=== PATIENT | female | born 1965 | race Caucasian/White ===

== ENCOUNTER 2016-10-26 14:13 | Observation (INO) ==
[2016-10-26] MEDS ORDERED: Ipratropium/Albuterol Neb 3 ML IH ONE (14:14)
--- NOTE | 2016-10-26 14:17 | Emergency Department Note ---
Disposition Clinical Impression: Chest pain Qualifiers: Chest pain type: unspecified Qualified Code(s): R07.9 - Chest pain, unspecified Disposition: Admitted As Inpatient Condition: Good Referrals: NO,PCP [Non-Partnered Physician] - Forms: ED Satisfaction Letter Time of Disposition: 17:12 SOB HPI - General Chief Complaint: ED Shortness of Breath/Dyspnea Stated Complaint: STEFANIE Time Seen by Provider: 10/26/16 14:14 Source: patient, EMS Mode of arrival: EMS Limitations: no limitations Nursing Notes Reviewed: Yes Vital Signs Reviewed: Yes - History of Present Illness 51-year-old with history of asthma comes in with main complaint of shortness of breath and cough. Patient was seen at the urgent care there concern was she may be having cardiac origin chest pain. She does have pain but she states only with coughing. She also has been lightheaded and somewhat dizzy. She notes that she lost her here in the last couple weeks has been placed on lorazepam for the anxiety. Pt Subjective Complaint: shortness of breath, cough, chest pain (With cough) Onset (ago): day(s) Context: recent illness Severity: moderate Consistency/Duration: intermittent Improves with: nothing Worsens with: nothing Known history of: asthma Associated symptoms: Reports: chest pain (With cough), cough, wheezing Treatment prior to arrival: none Cough Description: Involuntary Cough Frequency: Intermittent - Related Data Home Medications Medication Instructions Recorded Confirmed Atorvastatin [Lipitor] 10 mg PO HS 11/20/14 06/09/16 Butalb/Acetaminophen/Caffeine 1 each PO DAILY PRN 11/20/14 06/09/16 [Fioricet 50-300-40 mg Capsule] Lisinopril/Hydrochlorothiazide each PO DAILY 11/20/14 05/12/16 [Zestoretic 20-25 mg Tablet] Montelukast Sodium [Singulair] 10 mg PO HS 11/20/14 07/09/16 SUMAtriptan Succinate [Imitrex] 100 mg PO DAILY PRN 11/20/14 07/09/16 Cetirizine HCl [Zyrtec] 10 mg PO DAILY PRN 05/10/15 06/09/16 Cholecalciferol (Vitamin D3) 1,000 unit PO DAILY 05/10/15 06/09/16 [Vitamin D] Oxybutynin Chloride [Ditropan Xl] 15 mg PO DAILY 05/10/15 07/09/16 Lysine [l-Lysine] 500 mg PO DAILY PRN 08/03/15 07/09/16 Methocarbamol [Robaxin-750] 750 mg PO BID PRN 08/03/15 07/09/16 Sertraline [Zoloft] 100 mg PO DAILY 08/03/15 07/09/16 traZODone [TraZODone] 50 mg PO HS PRN 08/03/15 07/09/16 Esomeprazole Magnesium [Nexium] 40 mg PO 06/09/16 Lisinopril-HCTZ 20-12.5 [Prinzide 1 each PO 06/09/16 20-12.5] Previous Rx's Medication Instructions Recorded HYDROcodone/Acet 5/325 mg [[place] 1 tab PO Q6H PRN #8 tab 06/09/16 5-325 mg] Gabapentin [Neurontin] 300 mg PO TID #30 capsule 07/09/16 HYDROcodone/Acet 5/325 mg [[place] 1 tab PO Q6H PRN #14 tab 07/09/16 5-325 mg] Allergies Allergy/AdvReac Type Severity Reaction Status Date / Time aspirin [ASA] AdvReac Vomiting Verified 10/26/16 14:16 azithromycin AdvReac Gastrointestinal Verified 10/26/16 14:16 Upset butorphanol [From Stadol] AdvReac Itching Verified 10/26/16 14:16 codeine AdvReac Rash Verified 10/26/16 14:16 Erythromycin Base AdvReac Vomiting Verified 10/26/16 14:16 ibuprofen AdvReac See Verified 10/26/16 14:16 Comments Past Medical History - Past Medical History Medical history: Reports: asthma, GERD, hyperlipidemia, hypertension, migraine Surgical history: Reports: , cholecystectomy, hysterectomy Psychiatric history: Reports: anxiety, depression NUTRITION THERAPIST history: Reports: no NUTRITION THERAPIST history - Social History Smoking Status: Never smoker Smokeless Tobacco Status: No Alcohol use: Reports: occasionally Drug use: Reports: none Physical Exam - General Limitations: no limitations General appearance: alert, in no apparent distress - Head Head exam: atraumatic, normocephalic, normal inspection - Eye Eye exam: Present: normal appearance, PERRL, EOMI - ENT ENT exam: normal exam, normal oropharynx, mucous membranes moist - Neck Neck exam: Present: normal inspection, full ROM, trachea midline - Chest Chest inspection: Present: normal inspection, symmetric chest wall rise - Respiratory Respiratory exam: Present: wheezes (Occasional) - Cardiovascular Cardiovascular exam: Present: regular rate, normal rhythm, normal heart sounds - Abdominal Exam Abdominal exam: Present: soft, Non-Tender. Absent: tenderness, distention, guarding, rebound, rigidity - Extremities Exam Extremities exam: Present: normal inspection, full ROM. Absent: tenderness, pedal edema - Expanded Lower Extremity Exam Neurovascular/Tendon exam: Absent: motor deficit, sensory deficit, tendon deficit - Back Exam Back exam: Present: normal inspection, full ROM. Absent: tenderness - Neurological Exam Neurological exam: Present: alert, oriented X3. Absent: motor sensory deficit - Psychiatric Psychiatric exam: Present: normal affect, normal mood Course - Reevaluation(s) Reevaluation #1: 51-year-old who comes in complaining of chest pain and some lightheadedness and dizziness. Multiple cardiac risk factors. No recent workup. Be admitted for evaluation of her chest pain. Time: 17:11 - Consultations Consultation #1: Discussed with Dr. Valiente, admit. Time: 17:11 Vital Signs Temperature 98.2 F 10/26/16 14:17 Pulse Rate 53 10/26/16 14:17 Respiratory Rate 18 10/26/16 14:17 Blood Pressure 131/76 10/26/16 14:17 O2 Sat by Pulse Oximetry 98 10/26/16 14:17 Temperature 98.2 F 10/26/16 14:17 Pulse Rate 53 10/26/16 14:17 Respiratory Rate 18 10/26/16 14:17 Blood Pressure 131/76 10/26/16 14:17 O2 Sat by Pulse Oximetry 95 10/26/16 14:21 Oxygen Delivery Oxygen Delivery Room Air Shortness of Breath/Dyspnea - Lab Data Lab results reviewed: Yes I reviewed the patient's lab results. Result diagrams: 10/26/16 15:29 10/26/16 15:29 Lab Results 10/26/16 10/26/16 10/26/16 Range/Units 15:29 15:29 15:29 WBC 7.5 (4.3-11.1) K/mcL RBC 4.28 (3.82-4.97) M/mcL Hgb 12.7 (11.5-15.4) g/dL Hct 38.6 (35.3-44.9) % MCV 90.2 (83.0-100.0) fL MCH 29.7 (28.0-33.3) pg MCHC 32.9 (31.6-35.5) g/dL RDW 13.5 (11.5-14.5) % Plt Count 211 (140-400) K/mcL MPV 10.8 (9.4-12.4) fL Immature Gran % 0.3 (0-4) % Seg Neutrophils % 52.1 % Lymphocytes % 37.1 % Monocytes % 8.1 % Eosinophils % 1.3 % Basophils % 1.1 % Neutrophils # 3.9 (1.6-8.9) K/mcL Lymphocytes # 2.8 (0.6-4.6) K/mcL Monocytes # 0.6 (0.0-1.3) K/mcL Eosinophils # 0.1 (0.0-0.6) K/mcL Basophils # 0.1 (0.0-0.2) K/mcL Sodium 138 (136-145) mEq/L Potassium 3.8 (3.5-4.5) mEq/L Chloride 103 (98-109) mEq/L Carbon Dioxide 27 (19-29) mEq/L BUN 22 H (7-20) mg/dL Creatinine 0.82 (0.57-1.11) mg/dL Est GFR ( Amer) > 60 (> 60) Est GFR (Non-Af Amer) > 60 (> 60) BUN/Creatinine Ratio 27 H (6-26) Glucose 93 (70-99) mg/dL Calculated Osmolality 289 (280-300) Lactic Acid 3.1 H (0.5-2.2) mmol/L Calcium 9.3 (8.6-10.8) mg/dL Troponin I (0-0.03) ng/mL B-Natriuretic Peptide (0-100) pg/mL Urine Color (Yellow) Urine Clarity (Clear) Urine pH (5.0-8.0) pH Units Ur Specific [place] (1.010-1.025) Urine Protein (Neg-Trace) mg/dL Urine Glucose (UA) (Normal) mg/dL Urine Ketones (Negative) mg/dL Urine Blood (Negative) Urine Nitrite (Negative) Urine Bilirubin (Negative) Urine Urobilinogen (Normal) mg/dL Ur Leukocyte Esterase (Negative) Ur Culture Indicated? (NO) 10/26/16 10/26/16 10/26/16 Range/Units 15:29 15:29 15:49 WBC (4.3-11.1) K/mcL RBC (3.82-4.97) M/mcL Hgb (11.5-15.4) g/dL Hct (35.3-44.9) % MCV (83.0-100.0) fL MCH (28.0-33.3) pg MCHC (31.6-35.5) g/dL RDW (11.5-14.5) % Plt Count (140-400) K/mcL MPV (9.4-12.4) fL Immature Gran % (0-4) % Seg Neutrophils % % Lymphocytes % % Monocytes % % Eosinophils % % Basophils % % Neutrophils # (1.6-8.9) K/mcL Lymphocytes # (0.6-4.6) K/mcL Monocytes # (0.0-1.3) K/mcL Eosinophils # (0.0-0.6) K/mcL Basophils # (0.0-0.2) K/mcL Sodium (136-145) mEq/L Potassium (3.5-4.5) mEq/L Chloride (98-109) mEq/L Carbon Dioxide (19-29) mEq/L BUN (7-20) mg/dL Creatinine (0.57-1.11) mg/dL Est GFR ( Amer) (> 60) Est GFR (Non-Af Amer) (> 60) BUN/Creatinine Ratio (6-26) Glucose (70-99) mg/dL Calculated Osmolality (280-300) Lactic Acid (0.5-2.2) mmol/L Calcium (8.6-10.8) mg/dL Troponin I 0.01 (0-0.03) ng/mL B-Natriuretic Peptide < 10 (0-100) pg/mL Urine Color Yellow (Yellow) Urine Clarity Clear (Clear) Urine pH 7.0 (5.0-8.0) pH Units Ur Specific [place] 1.017 (1.010-1.025) Urine Protein Negative (Neg-Trace) mg/dL Urine Glucose (UA) Normal (Normal) mg/dL Urine Ketones Negative (Negative) mg/dL Urine Blood Negative (Negative) Urine Nitrite Negative (Negative) Urine Bilirubin Negative (Negative) Urine Urobilinogen Normal (Normal) mg/dL Ur Leukocyte Esterase Negative (Negative) Ur Culture Indicated? NO (NO) - Radiology Data Radiology results reviewed: Yes I reviewed the patient's radiology results. Chest X-Ray 10/26/16 14:14 IMPRESSION: No evidence for acute cardiopulmonary process. D/ / Ray Chapa MD / Ray Chapa MD Interpreting Provider: Ray Chapa MD Head CT 10/26/16 14:15 IMPRESSION: No acute intracranial abnormality. D/ / Ray Chapa MD / Ray Chapa MD Interpreting Provider: Ray Chapa MD - EKG Data EKG attestation: Yes I reviewed and interpreted this EKG. EKG shows normal: Reports: sinus rhythm Rate: Reports: normal Rhythm: Reports: NSR When compared to previous EKG there are: no significant changes (02/26/2016) Interpretation: Reports: no acute changes
[2016-10-26 15:46] LABS: Basophils # 0.1 K/mcL (0.0-0.2); Basophils % 1.1 %; Eosinophils # 0.1 K/mcL (0.0-0.6); Eosinophils % 1.3 %; Hematocrit 38.6 % (35.3-44.9); Hemoglobin 12.7 g/dL (11.5-15.4); Immature Granulocytes % 0.3 % (0-4); Lymphocytes # 2.8 K/mcL (0.6-4.6); Lymphocytes % 37.1 %; Mean Corpuscular HGB Conc 32.9 g/dL (31.6-35.5); Mean Corpuscular Hemoglobin 29.7 pg (28.0-33.3); Mean Corpuscular Volume 90.2 fL (83.0-100.0); Mean Platelet Volume 10.8 fL (9.4-12.4); Monocytes # 0.6 K/mcL (0.0-1.3); Monocytes % 8.1 %; Neutrophils # 3.9 K/mcL (1.6-8.9); Platelet Count 211 K/mcL (140-400); Red Blood Count 4.28 M/mcL (3.82-4.97); Red Cell Distribution Width 13.5 % (11.5-14.5); Segmented Neutrophils % 52.1 %
[2016-10-26 16:00] LABS: BUN/Creatinine Ratio 27 (6-26); Blood Urea Nitrogen 22 mg/dL (7-20); Calcium 9.3 mg/dL (8.6-10.8); Carbon Dioxide 27 mEq/L (19-29); Chloride 103 mEq/L (98-109); Glucose 93 mg/dL (70-99); Osmolality,Calculated 289 (280-300); Potassium 3.8 mEq/L (3.5-4.5); Sodium 138 mEq/L (136-145); eGFR For African Americans > 60 (> 60); eGFR For Non-African Americans > 60 (> 60)
[2016-10-26 16:09] LABS: Bilirubin,Urine Negative (Negative); Blood,Urine Negative (Negative); Clarity,Urine Clear (Clear); Color,Urine Yellow (Yellow); Glucose,Urine (UA) Normal (Normal); Ketones,Urine Negative (Negative); Leukocyte Esterase,Urine Negative (Negative); Nitrite,Urine Negative (Negative); Protein,Urine Negative (Neg-Trace); Specific Gravity,Urine 1.017 (1.010-1.025); Urobilinogen,Urine Normal (Normal)
[2016-10-26] MEDS ORDERED: 0.9 % Sodium Chloride 1,000 ML IVC ONE (16:19)
[2016-10-26] MEDS ORDERED: Ondansetron 4 MG/2 ML VIAL IVP PRN (18:28)
[2016-10-26] MEDS ORDERED: Naloxone 0.4 MG/ML INJ IVP PRN (18:28)
[2016-10-26] MEDS ORDERED: Loratadine 10 MG TABLET PO PRN (18:34)
--- NOTE | 2016-10-26 18:46 | Internal Med History&Physical ---
<Franko Garsia - Last Filed: 10/26/16 19:23> Date of Encounter: 10/26/16 Time of Encounter: 18:00 Assessment and Plan (1) Chest pain Current visit: Yes Status: Acute Patient presents with acute chest pain since yesterday. Patient reports chest pain is centralized pressure in her chest accompanied by shortness of breath. Patient reports history of asthma and panic attacks but denies previous cardiac history. Patient has family history of heart disease, HTN, HLD, COPD, and CVAs. Will trend troponins 2, placed patient on continuous cardiac telemetry, order EV echocardiogram, and continue patient's home medications of lisinopril and Lipitor. Will consider possible nuclear pharm stress test and cardiology consult if echocardiogram results are abnormal. Qualifiers: Chest pain type: other chest pain Qualified Code(s): R07.89 - Other chest pain; R07.8 - Other chest pain (2) SOB (shortness of breath) Current visit: Yes Status: Acute Patient presents with acute mild shortness of breath due to possible cardiac event or anxiety attack. Patient reports she became short of breath yesterday at work and felt as though she could not breathe. Patient has history of asthma and panic attacks. Supplemental O2 with titration if SPO2 less than 92% and continuous SPO2 monitoring ordered. DuoNebs ordered Q4. (3) Anxiety and depression Current visit: Yes Status: Acute Patient presents with acute on chronic anxiety and depression. Patient reports she is extremely stressed out by several events in her life including the of her last month being left to raise her son alone, and a landlord who is threatening to evict she and her son from the living space. Social work consult placed to assess for possible help available to patient. Will continue patient's scheduled Ativan and Zoloft. Will assess patient for continued signs of increasing anxiety and depression. (4) GERD (gastroesophageal reflux disease) Current visit: Yes Status: Chronic Patient presents with history of chronic gastroesophageal reflux disease. IV Zofran ordered when necessary. IV Protonix 40 mg daily ordered. Qualifiers: Esophagitis presence: esophagitis presence not specified Qualified Code(s) : K21.9 - Gastro-esophageal reflux disease without esophagitis (5) HLD (hyperlipidemia) Current visit: Yes Status: Chronic Patient presents with history of chronic hyperlipidemia. Lipid panel ordered. Will continue patient's Lipitor. Qualifiers: Hyperlipidemia type: pure hypercholesterolemia Qualified Code(s): E78.00 - Pure hypercholesterolemia, unspecified; E78.0 - Pure hypercholesterolemia (6) HTN (hypertension) Current visit: Yes Status: Chronic Patient presents with history of chronic hypertension. Will continue Lisinopril and monitor patient and BP. Qualifiers: Hypertension type: essential hypertension Qualified Code(s): I10 - Essential (primary) hypertension (7) DVT prophylaxis Current visit: Yes Status: Acute Patient placed on DVT prophylaxis due to admission protocol and bedrest status. Heparin 5000 units SQ every 8 ordered. Internal Medicine - H&P: HPI Chief complaint: SOB/Dyspnea/Chest pain Admitted From: Emergency Dept Plans for Post Hospital Care: Home History of present illness: Mrs. Grigsby is a 51 year old female who presents from the ED with chief complaints of SOB and dyspnea accompanied by chest pain that is centralized in her chest and as reported by her does not radiate to her neck, back, or arms. Patient states that the symptoms began yesterday when she was at work and she felt as though she couldn't breathe. She states that the chest pain is a pressure in her chest accompanied by SOB. She reports being stressed out due to the loss of her last month and her landlord threatening to evict her and her son from their living space. She reports that she has had panic attacks in the past. Patient reports a cough with sputum sometimes that is yellow/ green. Currently patient's CXR from today shows her lungs are clear. Patient's current WBC is 7.5. She denies recent illness, fever, chills, nausea, vomiting, generalized weakness, numbness, tingling, or headaches. Patient has a medical history of asthma, GERD, HLD, HTN, and migraine headaches. Patient denies previous cardiac history but is at moderate risk due to current symptoms as well as risk factors of hyperlipidemia, hypertension, and obesity with central adipose at the waistline. Patient will be admitted as observation status with continuous cardiac telemetry, echocardiogram, trending troponins x2, supplemental O2 with SpO2 monitoring, DuoNebs Q4, and continuation of patient's home medications. Patient to be monitored closely. Time spent with patient 30 minutes. Past Med Surg Social Fam HX - Past Medical History Source: patient Medical history: asthma, GERD, hyperlipidemia, hypertension, migraine Psychiatric history: anxiety, depression - Past Surgical History Surgical History: , cholecystectomy, hysterectomy (Total) - Social History Smoking Status: Never smoker Smokeless Tobacco Status: No Alcohol use: occasionally Drug use: none Occupational status: employed Current living situation: Home, With Family Activity Level: Independent ambulation Recent Out of Country Travel Within the Last 8 Weeks: No Exposure or Possible Exposure to Illness During Travel: No - Family History Father Race: Family Member Ethnicity: Non- Living Status: Age at : 56 Cause of : Brain aneurysm Hx Family Cardiac Disorders: Yes (HD, HTN, HLD) Mother Race: Family Member Ethnicity: Non- Living Status: Age at : 70 Cause of : Massive ND Hx Family Cardiac Disorders: Yes (ND, HD) Brother Race: Family Member Ethnicity: Non- Living Status: Age at : 55 Cause of : Heat stroke Sister Race: Family Member Ethnicity: Non- Living Status: Still Living Hx Family Respiratory Disorders: Yes (COPD) Internal Medicine - H&P: Meds Atorvastatin [Lipitor] 10 mg PO HS 11/20/14 [History] Butalb/Acetaminophen/Caffeine [Fioricet 50-300-40 mg Capsule] 1 cap PO DAILY PRN 11/20/14 [History] Lisinopril/Hydrochlorothiazide [Zestoretic 20-25 mg Tablet] 1 tab PO DAILY 11/20 [History] Montelukast Sodium [Singulair] 10 mg PO HS 11/20/14 [History] SUMAtriptan Succinate [Imitrex] 100 mg PO DAILY PRN 11/20/14 [History] Cetirizine HCl [Zyrtec] 10 mg PO DAILY PRN 05/10/15 [History] Cholecalciferol (Vitamin D3) [Vitamin D] 1,000 unit PO DAILY 05/10/15 [History] Oxybutynin Chloride [Ditropan Xl] 15 mg PO DAILY 05/10/15 [History] Methocarbamol [Robaxin-750] 750 mg PO BID PRN 08/03/15 [History] Sertraline [Zoloft] 100 mg PO DAILY 08/03/15 [History] traZODone [TraZODone] 50 mg PO HS PRN 04/14/16 [History] Esomeprazole Magnesium [Nexium] 40 mg PO DAILY 06/09/16 [History] LORazepam [Ativan] 0.5 mg PO BID 10/26/16 [History] Sucralfate [Carafate] 1 gm PO QIDAC 10/26/16 [History] Allergies codeine Allergy (Verified 10/26/16 17:23) Rash aspirin [ASA] Adverse Reaction (Verified 10/26/16 14:16) Vomiting butorphanol [From Stadol] Adverse Reaction (Verified 10/26/16 14:16) Itching Erythromycin Base Adverse Reaction (Verified 10/26/16 14:16) Vomiting ibuprofen Adverse Reaction (Verified 10/26/16 17:23) Vomiting All Systems PM: A 10-system review of systems was performed and is negative for pertinent findings except as documented above in the HPI. - Constitutional Constitutional: no chills, no fever(s), no night sweats - EENT Eyes: no change in vision, no discharge, no pain, no photophobia Ears: no ear discharge, no ear pain, no tinnitus Nose, mouth and throat: no dysphagia, no nasal discharge, no neck pain, no sore throat - Breasts Breasts: as per HPI - Cardiovascular Cardiovascular ROS IM: as per HPI, chest pain, dyspnea - Respiratory Respiratory: as per HPI, cough, dyspnea, change in phlegm color - Gastrointestinal Gastrointestinal: no abdominal pain, no diarrhea, no hematemesis, no hematochezia, no melena, no nausea, no vomiting - Genitourinary Genitourinary: no change in urinary stream, no dysuria, no flank pain, no hematuria Menstruation: as per HPI, post hysterectomy - Musculoskeletal Musculoskeletal ROS IM: no numbness, no tingling - Integumentary Integumentary IM: no rash, no unusual bruising - Neurological Neurological ROS: no confusion, no convulsions, no focal weakness, no numbness, no tingling, no tremor(s) - Psychiatric Psychiatric: as per HPI, anxiety, depression - Endocrine Endocrine IM: as per HPI - Hematologic/Lymphatic Hematologic/Lymphatic: no easy bruising - Allergic/Immunologic Allergic/Immunologic: as per HPI - Constitutional Vitals: Temp Pulse Resp BP Pulse Ox 98.2 F 53 18 131/76 95 10/26/16 14:17 10/26/16 14:17 10/26/16 14:17 10/26/16 14:17 10/26/16 14:21 General appearance: Present: mild distress, A&O X 3, pleasant, obese, answers questions appropriately - Head Head exam: Present: atraumatic, normocephalic - Eye Eye exam: Present: PERRL, conjuntiva pink, sclera anicteric Pupils: Present: PERRL - ENT ENT exam: Present: normal exam, normal external ear exam - Neck Neck exam general surgery: Present: supple, trachea midline. Absent: lymphadenopathy - Respiratory Respiratory exam: Present: CTAB. Absent: accessory muscle use, rales, rhonchi, wheezes - Cardiovascular Cardiovascular exam: Present: RRR, +S1, +S2. Absent: diastolic murmur, gallop, rubs, systolic murmur - GI/Abdominal GI/Abdominal exam: Present: normal bowel sounds, soft, no peritoneal signs. Absent: distended, tenderness - Rectal Rectal exam: Present: deferred - Additional comments: exam deferred. - Extremities Exam Extremities exam: Present: warm, radial pulses palpable and symetrical. Absent : calf tenderness, cyanotic, pedal edema - Back Exam Back exam: Present: normal inspection - Neurological Exam Neurological exam: Present: CN II-XII intact, oriented X3, no focal deficits. Absent: pronater drift, facial droop, speech deficit - Psychiatric Psychiatric exam: Present: anxious - Skin Skin exam: Present: dry, intact Internal Med - H&P Results - Labs CBC & Chem 7: 10/26/16 15:29 10/26/16 15:29 Labs: Short CBC 10/26/16 Range/Units 15:29 WBC 7.5 (4.3-11.1) K/mcL Hgb 12.7 (11.5-15.4) g/dL Hct 38.6 (35.3-44.9) % Plt Count 211 (140-400) K/mcL Neutrophils # 3.9 (1.6-8.9) K/mcL BMP 10/26/16 15:29 Sodium 138 Potassium 3.8 Chloride 103 Carbon Dioxide 27 BUN 22 H Creatinine 0.82 Glucose 93 Calcium 9.3 Cardiac Enzymes 10/26/16 Range/Units 15:29 Troponin I 0.01 (0-0.03) ng/mL Urine 10/26/16 Range/Units 15:49 Urine Color Yellow (Yellow) Urine Clarity Clear (Clear) Urine pH 7.0 (5.0-8.0) pH Units Ur Specific [place] 1.017 (1.010-1.025) Urine Protein Negative (Neg-Trace) mg/dL Urine Glucose (UA) Normal (Normal) mg/dL - EKG Data EKG shows normal: sinus rhythm Rate: bradycardia - EKG Data Prior EKG available for review: yes When compared to previous EKG: there is no significant change EKG comments: 10/26/16 19:05 EKG dated 02/26/16 shows sinus bradycardia with low QRS voltage in precordial leads. EKG dated 10/26/16 shows sinus bradycardia with possible anterior myocardial infarction, probably old. - Impressions ITS Impressions Chest X-Ray 10/26/16 14:14 IMPRESSION: No evidence for acute cardiopulmonary process. D/ / Ray Chapa MD / Ray Chapa MD Interpreting Provider: Ray Chapa MD Head CT 10/26/16 14:15 IMPRESSION: No acute intracranial abnormality. D/ / Ray Chapa MD / Ray Chapa MD Interpreting Provider: Ray Chapa MD - Diagnostic Studies Chest x-ray Additional comments: Impressions Chest X-Ray 10/26/16 14:14 IMPRESSION: No evidence for acute cardiopulmonary process. D/ / Ray Chapa MD / Ray Chapa MD Interpreting Provider: Ray Chapa MD CT scan - head Additional comments: Impressions Head CT 10/26/16 14:15 IMPRESSION: No acute intracranial abnormality. D/ / Ray Chapa MD / Ray Chapa MD Interpreting Provider: Ray Chapa MD <John Balbuena - Last Filed: 10/26/16 20:06> Date of Encounter: 10/26/16 Internal Medicine - H&P: HPI History of present illness: Ms. Grigsby is a 51 year old female All Systems PM: A 10-system review of systems was performed and is negative for pertinent findings except as documented above in the HPI. - Constitutional Vitals: Temp Pulse Resp BP Pulse Ox 98.2 F 53 16 126/80 98 10/26/16 14:17 10/26/16 14:17 10/26/16 19:47 10/26/16 19:23 10/26/16 19:47 Internal Med - H&P Results - Labs CBC & Chem 7: 10/26/16 15:29 10/26/16 15:29 - Attending Attestation I have seen and examined the patient around 19:30. I have discussed about the patient with Franko Garsia NP. I have reviewed the orders and the note. Patient is a 51-year-old female with past history of hypertension, hyperlipidemia, migraine headaches, depression and asthma. Patient presents to the ED with complaints of chest pain or shortness of breath. Symptoms started about 24 hours ago. Patient states her chest pain is mainly in the central chest and did not radiate. She did have associated shortness of breath. Patient states she has had a lot of stressors in her life. Her has recently. She is also worried that she may be evicted from her house soon. Patient seems to have anxiety and has had panic attacks past. Initial workup in the ED is negative. Her CT of the head and the chest x-ray are both negative for any acute process. EKG is normal sinus rhythm with no acute ST-T changes. Labs are fairly within normal limits. Patient is being admitted for chest pain to rule out ACS. Symptoms are likely due to panic attack and anxiety and also combination of mild asthma exacerbation. Patient states she is allergic to aspirin and will not take that. Patient will be kept on statin. She will be on DuoNeb breathing treatment. We will trend troponin. Patient has been explained about her condition and plan of care. Understood and agreed. No unanswered questions. CODE STATUS full code.
[2016-10-26] MEDS: Ipratropium/Albuterol Neb 3 ML IH SCH ×2 (19:47→23:10)
[2016-10-26] MEDS: *HR* Heparin 5,000 UNIT/ML VIAL SQ SCH (20:19)
[2016-10-26] MEDS: Pantoprazole 40 MG VIAL IVP SCH (20:19)
[2016-10-26] MEDS: *HR* LORazepam 0.5 MG TABLET PO SCH (20:20)
[2016-10-26] MEDS: Acetaminophen/Butalbital/CaffeineTABLET PO PRN (20:20)
[2016-10-26] MEDS: Sucralfate 1 GM TABLET PO SCH (20:20)
[2016-10-26] MEDS ORDERED: traZODone 50 MG TABLET PO PRN (21:00)
[2016-10-27] MEDS: Methocarbamol 750 MG TABLET PO PRN ×2 (01:04→21:25)
[2016-10-27] MEDS: Ipratropium/Albuterol Neb 3 ML IH SCH ×3 (03:47→10:52)
[2016-10-27 04:46] LABS: Basophils # 0.1 K/mcL (0.0-0.2); Basophils % 0.9 %; Eosinophils # 0.1 K/mcL (0.0-0.6); Eosinophils % 1.1 %; Hematocrit 34.6 % (35.3-44.9); Hemoglobin 11.6 g/dL (11.5-15.4); Immature Granulocytes % 0.2 % (0-4); Lymphocytes # 2.6 K/mcL (0.6-4.6); Lymphocytes % 41.2 %; Mean Corpuscular HGB Conc 33.5 g/dL (31.6-35.5); Mean Corpuscular Hemoglobin 30.1 pg (28.0-33.3); Mean Corpuscular Volume 89.9 fL (83.0-100.0); Mean Platelet Volume 10.8 fL (9.4-12.4); Monocytes # 0.4 K/mcL (0.0-1.3); Monocytes % 6.3 %; Neutrophils # 3.2 K/mcL (1.6-8.9); Platelet Count 198 K/mcL (140-400); Red Blood Count 3.85 M/mcL (3.82-4.97); Red Cell Distribution Width 13.6 % (11.5-14.5); Segmented Neutrophils % 50.3 %
[2016-10-27 04:52] LABS: INR 0.9; Prothrombin Time 9.9 Seconds (9.4-12.1)
[2016-10-27 04:55] LABS: Activated Partial Thrombo Time 28.3 Seconds (26.0-36.0)
[2016-10-27 05:00] LABS: Hemoglobin A1C 5.5 %
[2016-10-27 05:08] LABS: BUN/Creatinine Ratio 21 (6-26); Blood Urea Nitrogen 18 mg/dL (7-20); Calcium 9.1 mg/dL (8.6-10.8); Carbon Dioxide 30 mEq/L (19-29); Chloride 105 mEq/L (98-109); Chol/HDL Ratio 3.5 (0-4.9); Cholesterol 144 mg/dL (< 200); Glucose 97 mg/dL (70-99); HDL Cholesterol 41 mg/dL (40-59); LDL Cholesterol,Calculated 73 mg/dL (0-99); Magnesium 1.8 mg/dL (1.6-2.6); Osmolality,Calculated 292 (280-300); Potassium 3.7 mEq/L (3.5-4.5); Sodium 140 mEq/L (136-145); Triglycerides 151 mg/dL (< 150); eGFR For African Americans > 60 (> 60); eGFR For Non-African Americans > 60 (> 60)
[2016-10-27] MEDS: Sucralfate 1 GM TABLET PO SCH ×3 (06:01→19:21)
[2016-10-27] MEDS: *HR* Heparin 5,000 UNIT/ML VIAL SQ SCH ×3 (06:01→21:26)
[2016-10-27] MEDS: Pantoprazole 40 MG VIAL IVP SCH (08:49)
[2016-10-27] MEDS: *HR* LORazepam 0.5 MG TABLET PO SCH ×2 (08:50→21:25)
[2016-10-27] MEDS: Cholecalciferol (D-3) 1,000 UNIT TABLET PO SCH (08:50)
[2016-10-27] MEDS ORDERED: SUMAtriptan succinate 50 MG TABLET PO PRN (09:00)
[2016-10-27] MEDS ORDERED: Ipratropium/Albuterol Neb 3 ML IH PRN (11:14)
--- NOTE | 2016-10-27 17:42 | Internal Med Progress Note ---
Date of Encounter: 10/27/16 Time of Encounter: 09:10 - Assessment and plan (1) Chest pain Current Visit: Yes Status: Acute Assessment and plan: Patient presents with acute chest pain since yesterday. She says it is a pressure in her chest without radiation. She has shortness of breath without nausea or vomiting or diaphoresis. She has no cardiac history. Her mother of an [place] chronic CHF. Patient is at increased risk due to obesity, hypertension. Patient's troponins were negative. Echocardiogram showed LVEF of 60% with normal LV chamber size, wall thickness and function, normal diastolic function, normal RV function significant biventricular dysfunction, no pulmonary hypertension. Pain is reproducible with deep palpation to left chest. 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 We will continue to monitor patient overnight for any changes. Continue telemetry and medications. Qualifiers: Chest pain type: other chest pain Qualified Code(s): R07.89 - Other chest pain; R07.8 - Other chest pain (2) Anxiety and depression Current Visit: Yes Status: Acute Assessment and plan: Patient presents with chronic anxiety. She does take Ativan 0.5 mg by mouth twice a day and trazodone to sleep. She takes Zoloft 100 mg daily, I have increased it to 150 mg daily. Patient states that her about one month ago from cancer. She has a 12-year-old son and she is raising, she does seem rather detached from him. She says that he is having a hard time, but is unsure how he is doing and has not attempted to give him any help. She reports that she has an appointment with a counselor in [place] in 2 days. She denies suicidal ideations or homicidal ideations. She denies wanting to harm herself. (3) SOB (shortness of breath) Current Visit: Yes Status: Chronic Assessment and plan: Patient reports shortness of breath that is normal for her. She states that she has asthma that appears to be well controlled. She also reports that she has become increasingly short of breath over the last few weeks due to the of her . We will continue her home medications. Her lungs are clear she is in no distress and she speaks easily in full sentences. (4) GERD (gastroesophageal reflux disease) Current Visit: Yes Status: Chronic Assessment and plan: Chronic. Continue medications. Qualifiers: Esophagitis presence: esophagitis presence not specified Qualified Code(s) : K21.9 - Gastro-esophageal reflux disease without esophagitis (5) HLD (hyperlipidemia) Current Visit: Yes Status: Chronic Assessment and plan: Lipid panel within normal limits. Continue home medication. Qualifiers: Hyperlipidemia type: pure hypercholesterolemia Qualified Code(s): E78.00 - Pure hypercholesterolemia, unspecified; E78.0 - Pure hypercholesterolemia (6) HTN (hypertension) Current Visit: Yes Status: Chronic Assessment and plan: Within normal limits. Continue home medications. Qualifiers: Hypertension type: essential hypertension Qualified Code(s): I10 - Essential (primary) hypertension (7) DVT prophylaxis Current Visit: Yes Status: Acute Assessment and plan: Apparent subcutaneous daily. Patient is ambulatory. - Time Spent With Patient less than 15 minutes - Subjective Interval history: Patient was seen and assessed at 9:10 AM. She is resting quietly and darkened room and bed. She reports chest pain, describes a heaviness/pressure with no radiation. Currently 5 out of 10, she states it can go to adhere to 10, not provoked by deep inspiration or activity. She reports shortness of breath, she has asthma. She denies nausea or diaphoresis. She does not smoke and has positive hypertension hyperlipidemia lipidemia. She reports that her mom of an [place] and had a long-standing history of CHF. Patient is very flat, depressed. She says her October 07 and she is taking care of her 12- year-old son. She seems detached from him. I have increased her Zoloft 150 mg daily. She does take Ativan twice a day. She reports that she has an appointment Friday in [place] with a counselor. Pain is reproducible to palpation. 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 - Constitutional Vitals: Temp Pulse Resp BP Pulse Ox 98.1 F 77 17 99/60 94 10/27/16 15:52 10/27/16 15:52 10/27/16 15:52 10/27/16 15:52 10/27/16 15:52 General appearance: Present: mild distress, A&O X 3, pleasant, obese, answers questions appropriately - Head Head exam: Present: normal inspection - Eye Eye exam: Present: EOMI, normal appearance, conjuntiva pink - ENT ENT exam: Present: mucous membranes moist, normal exam, normal external ear exam - Neck Neck exam general surgery: Absent: lymphadenopathy, tenderness - Respiratory Respiratory exam: Present: chest wall tenderness, decreased breath sounds, CTAB. Absent: rales, respiratory distress, rhonchi, stridor, wheezes - Cardiovascular Cardiovascular exam: Present: RRR, +S1, +S2. Absent: diastolic murmur, systolic murmur - GI/Abdominal GI/Abdominal exam: Present: distended, normal bowel sounds, soft. Absent: hepatomegaly, tenderness - Extremities Exam Extremities exam: Present: normal capillary refill, warm. Absent: pedal edema, tenderness - Neurological Exam Neurological exam: Present: alert, oriented X3, no focal deficits. Absent: facial droop, speech deficit - Psychiatric Psychiatric exam: Present: depressed, flat affect. Absent: homicidal ideation, suicidal ideation - Skin Skin exam: Present: dry, normal color, warm. Absent: rash Internal Medicine: Result - Labs CBC & Chem 7: 10/27/16 04:09 10/27/16 04:09 Labs: Short CBC 10/27/16 Range/Units 04:09 WBC 6.4 (4.3-11.1) K/mcL Hgb 11.6 (11.5-15.4) g/dL Hct 34.6 L (35.3-44.9) % Plt Count 198 (140-400) K/mcL Neutrophils # 3.2 (1.6-8.9) K/mcL BMP 10/27/16 04:09 Sodium 140 Potassium 3.7 Chloride 105 Carbon Dioxide 30 H BUN 18 Creatinine 0.85 Glucose 97 Calcium 9.1 Cardiac Enzymes 10/26/16 10/27/16 Range/Units 22:35 04:09 Troponin I 0.00 0.01 (0-0.03) ng/mL - ABG Interpretation ABG results: PT/INR, D-dimer PT 9.9 Seconds (9.4-12.1) 10/27/16 04:09 Consult Discharge Plan - Plan Referrals: Ledy Edward, [facility] [Primary Care Provider] -
[2016-10-27] MEDS: Acetaminophen/Butalbital/CaffeineTABLET PO PRN (19:25)
[2016-10-28] MEDS: Sucralfate 1 GM TABLET PO SCH ×3 (06:38→11:57)
[2016-10-28] MEDS: *HR* Heparin 5,000 UNIT/ML VIAL SQ SCH (06:43)
[2016-10-28] MEDS: Cholecalciferol (D-3) 1,000 UNIT TABLET PO SCH (08:44)
[2016-10-28] MEDS: Pantoprazole 40 MG VIAL IVP SCH (08:49)
[2016-10-28] MEDS: *HR* LORazepam 0.5 MG TABLET PO SCH (08:54)
[2016-10-28] MEDS ORDERED: hydrOXYzine pamoate 25 MG CAPSULE PO STA (11:52)
--- NOTE | 2016-10-28 12:05 | Electrocardiograph Report ---
[place] [id number] Test Date: 2016-10-26 Pat Name: Lucina Grigsby Department: 104 Room: 3B Gender: F Opthalmic Tech: [facility] : 1965 Requested By: Alberto Robles Order Number: [id number] Reading MD: Shaji Santiago MD Measurements Intervals [place] Rate: 54 P: 67 AR: 173 QRS: 25 QRSD: 86 T: 62 QT: 423 QTc: 409 Interpretive Statements SINUS BRADYCARDIA BASELINE ARTIFACT Electronically Signed On 10-28-2016 12:03:50 EDT by Shaji Santiago MD
[2016-10-28] MEDS: Methocarbamol 750 MG TABLET PO PRN (12:09)
[2016-10-28 12:42] VITALS: BP 117/77
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
== END 2016-10-28 16:52 | disposition home or self-care (01) ==
LOC: EMEROO 14:13 → 3BNU 14:13
PROVIDERS: ADMIT Family Medicine; ATTEND Registered Nurse